=== PATIENT | female | born 1945 | race Caucasian/White ===

== ENCOUNTER → 2020-07-02 | Outpatient (CLI) | payer MEDICARE ==
[2020-07-02 11:24] VITALS: BP 176/72; PULSE 80; RESP 18; TEMP 98.1
--- NOTE | 2020-07-02 12:09 | P.GSHP ---
History of Present Illness H&P Date: 07/02/20 Chief Complaint: breast pain Sarbjit is a 75 year old white female seen in consultation for Sandie Yeboah with a complaint of pain in her breast. She had a bilateral mammogram on 04-23-20 which was benign BIRAD 1. She states the pain initially started in the left breast in the upper outer area, this stopped and she started having pain in the right breast. At this time the pain has resolved. The pain was described as aching. It would last for about an hour. The pain would occur 3-4 times/day. The pain started after she started ditropan for bladder frequency. This caused dry mouth, and nose and eyes, as well as dry skin. She stopped this on her own and the pain stopped. She was taking ibuprofen 800 mg which was helping the pain but is no longer needed. Also of note at the time the patient was having the breast pain she had switched to caffeinated coffee was drinking approximately 5 cups per day and eating chocolate on a regular basis. She has since stopped both of these things. The patient has had one breast biopsy after breast-feeding she developed a dry mouth and had a removal of a duct. She does not remember which breast this was in. She is not complaining of any nipple discharge or skin changes. She is not complaining of any lumps masses or nodules in her breast at this time. The pain has subsided since she stopped the Ditropan. She is not complaining of any trauma or infection in the breast. Caffeine: 5 cups/day, changed to decaff about 6 weeks ago nicotine: none Theophylline: daily, stopped about 6 weeks ago hormones: none Family History: mother: skin cancer Hormonal History: menarche: 11 , breast fed: yes menopause: 49 BCP: 16 years hormones: none Surgical history: appy gallbladder ankle left right hand Medical History: none Social History: nicotine: none alcohol: none drugs: none - Constitutional Constitutional: Denies chills, Denies fever - EENT Comment: laser eye right, bilateral cataract Eyes: denies blurred vision, denies pain Ears: deny: decreased hearing, tinnitus Ears, nose, mouth and throat: Denies headache, Denies sore throat - Breasts Breasts: bilateral: as per HPI - Cardiovascular Cardiovascular: Denies chest pain, Denies shortness of breath - Respiratory Respiratory: Denies cough, Denies 7 - Gastrointestinal Comment: PUD in the past Gastrointestinal: Denies abdominal pain, Denies diarrhea, Denies nausea, Denies vomiting - Genitourinary (Female) Genitourinary: Reports urinary frequency, Denies dysuria, Denies hematuria - Menstruation Menstruation: Reports postmenopausal - Musculoskeletal Comment: arthritis Musculoskeletal: Denies myalgias - Integumentary Integumentary: Denies pruritus, Denies rash - Neurological Neurological: Reports weakness, Denies numbness - Psychiatric Psychiatric: Denies anxiety, Denies depression - Endocrine Comment: changed diet so some weight loss/ 15 pounds Endocrine: Reports weight change, Denies fatigue - Hematologic/Lymphatic Hematologic/Lymphatic: Reports as per HPI - Allergic/Immunologic Allergic/Immunologic: Reports as per HPI Past Medical History History of Any Multi-Drug Resistant Organisms: None Reported Smoking Status: Never smoker Medications and Allergies Home Medications Medication Instructions Recorded Confirmed Type Cholecalciferol (Vitamin D3) 12.5 mcg PO QAM 07/02/20 07/02/20 History [Vitamin D3] Magnesium 250 mg PO QAM 07/02/20 07/02/20 History Naproxen Sodium [Aleve] 220 mg PO DAILY 07/02/20 07/02/20 History Neuriva 1 tab PO HS 07/02/20 07/02/20 History [place]-3 Fatty Acids/Fish Oil [Fish 1 each PO QAM 07/02/20 07/02/20 History Oil 1,000 mg Softgel] Pomegranate Juice 1 oz PO QAM 07/02/20 07/02/20 History Super B Complex 1 tab PO QAM 07/02/20 07/02/20 History Allergies Allergy/AdvReac Type Severity Reaction Status Date / Time No Known Allergies Allergy Unverified 07/02/20 11:16 Surgical - Exam Vital Signs Temp Pulse Resp BP Pulse Ox 98.1 F 80 18 176/72 97 07/02/20 11:20 07/02/20 11:20 07/02/20 11:20 07/02/20 11:20 07/02/20 11:20 BMI 22.7 - General well developed, well nourished, no distress - Eyes normal ocular movement - ENT normal nares, no hearing loss - Neck no masses, trachea midline - Respiratory normal expansion, normal respiratory effort, clear to percussion, clear to auscultation - Cardiovascular Rhythm: regular Heart Sounds: normal: S1, S2 - Abdomen Abdomen: soft, bowel sounds - Musculoskeletal normal gait, normal posture - Psychiatric oriented to time, oriented to person, oriented to place, speech is normal, memory intact Breast exam: BRA: 36C inspection: Bilateral grade 3 ptosis palpation: Right breast: multi-positional exam fibrocystic changes, no dominant masses or nodules of concern mild tender upper quadrant Right axilla: No adenopathy of concern Left breast: Multi-positional exam fibrocystic changes, no dominant masses or nodules of concern, mild tender upper outer quadrant Left axilla: No adenopathy of concern Results Mammogram results reviewed Assessment and Plan Assessment: Impression: 1. Intermittent bilateral breast discomfort/more pronounced after patient started drinking caffeinated coffee and eating chocolate this also seems to correspond to taking Ditropan the pain is now improved 2. Fibrocystic breast changes recent bilateral mammogram 04-23-20 BIRADS 1 Plan: 1. obstain from theophylline and caffeine 2. Bilateral mammogram in 1 year 3. Patient will call if any questions or concerns 4. Follow-up with Sandie Yeboah We have discussed the causes of fibrocystic breast pain. She is going to modify her lifestyle to abstain from theophylline and caffeine. She was given a book related to breast pain. She will see us again if she has any questions or concerns. DD: Sandie Yeboah encounter 40 minutes, > 50% of time in planning and counselling
== END | disposition home or self-care (01) ==
LOC: WWCWWP 10:47
PROVIDERS: ATTEND Surgery
DX: Z53.9 Procedure and treatment not carried out, unspecified reason (principal)

== ENCOUNTER 2024-10-10 14:20 | Observation (INO) | payer MEDICARE ==
--- NOTE | 2024-10-10 15:17 | ED ---
General Adult HPI - General Chief complaint: Chest Pain Stated complaint: chest pain Time Seen by Provider: 10/10/24 14:33 Source: patient, family, RN notes reviewed Mode of arrival: ambulatory Limitations: no limitations - History of Present Illness Initial comments: This is an 79-year-old female with a history of coronary artery disease with stent placement presenting to the emergency department as a transfer from [facility] with concern for chest pain. Patient had outpatient cardiac rehab scheduled this morning where she presented however staff was concerned that patient was ill-appearing. Additionally, she states over the past week she has been experiencing relatively constant chest pressure that is mid chest and nonradiating. States the pain is relatively constant however will occasionally intensify and is sometimes associated with diaphoresis. Currently she is experiencing mild chest pressure with no associated nausea, vomiting. She is presenting for continuation of care cardiology. While at [facility] patient underwent extensive evaluation including CT of the abdomen pelvis without contrast, chest x-ray, laboratory testing including troponin that was unremarkable. - Related Data Home Medications Medication Instructions Recorded Confirmed Ascorbic Acid [Vitamin C] 500 mg PO DAILY 10/10/24 10/10/24 Brain Health Supplement 1 tab PO HS 10/10/24 10/10/24 Calcium Carbonate [Calcium] 600 mg PO DAILY 10/10/24 10/10/24 Cholecalciferol [Vitamin D3 (10 10 mcg PO DAILY 10/10/24 10/10/24 Mcg = 400 Iu)] Empagliflozin [Jardiance] 10 mg PO DAILY 10/10/24 10/10/24 Magnesium Oxide [Mag-Ox] 400 mg PO DAILY 10/10/24 10/10/24 Multivit-Min/Iron/Folic/Lutein 1 tab PO DAILY 10/10/24 10/10/24 [Centrum Silver Women Tablet] Psyllium Husk [Metamucil] 0.4 gm PO DAILY 10/10/24 10/10/24 Rosuvastatin [Crestor] 20 mg PO HS 10/10/24 10/10/24 Sacubitril/Valsartan [Entresto 49 1 tab PO BID 10/10/24 10/10/24 mg-51 mg Tablet] Previous Rx's Medication Instructions Recorded Aspirin 81 mg PO DAILY tab 09/04/24 Ezetimibe [Zetia] 10 mg PO DAILY #90 tab 09/04/24 Metoprolol Succinate (ER) [Toprol 12.5 mg PO DAILY #45 tab 09/04/24 XL] Nitroglycerin Sl Tabs [Nitrostat] 0.4 mg SUBLINGUAL Q5M PRN #25 tab 09/04/24 Ticagrelor [Brilinta] 90 mg PO BID #180 tab 09/04/24 Allergies Allergy/AdvReac Type Severity Reaction Status Date / Time atorvastatin [From Lipitor] Allergy Severe Cough Verified 10/10/24 16:28 Review of Systems ROS Statement: Those systems with pertinent positive or pertinent negative responses have been documented in the HPI. ROS Other: All systems not noted in ROS Statement are negative. Past Medical History Past Medical History: Hypertension History of Any Multi-Drug Resistant Organisms: None Reported Past Surgical History: Orthopedic Surgery Past Anesthesia/Blood Transfusion Reactions: No Reported Reaction Date of Last Stent Placement:: 09/02/2024 Past Psychological History: No Psychological Hx Reported Smoking Status: Never smoker Past Alcohol Use History: None Reported Past Drug Use History: None Reported General Exam Limitations: no limitations Neck exam: Present: normal inspection. Absent: tenderness, meningismus, lymphadenopathy Respiratory exam: Present: normal lung sounds bilaterally. Absent: respiratory distress, wheezes, rales, rhonchi, stridor Cardiovascular Exam: Present: regular rate, normal rhythm, normal heart sounds. Absent: systolic murmur, diastolic murmur, rubs, gallop, clicks GI/Abdominal exam: Present: soft, normal bowel sounds. Absent: distended, tenderness, guarding, rebound, rigid Extremities exam: Present: normal inspection, full ROM, normal capillary refill. Absent: tenderness, pedal edema, joint swelling, calf tenderness Back exam: Present: normal inspection Course Vital Signs 10/10/24 10/10/24 10/10/24 14:23 15:47 17:50 Temperature 98.0 F Pulse Rate 71 66 75 Respiratory 18 18 18 Rate Blood Pressure 125/71 123/76 137/70 O2 Sat by Pulse 96 97 98 Oximetry Medical Decision Making - Medical Decision Making Was pt. sent in by a medical professional or institution (, PA, L[employer]ER [employer]ER, urgent care, hospital, or fdc...) When possible be specific @ -Patient was a transfer from [facility] for further treatment chest pressure Did you speak to anyone other than the patient for history (EMS, parent, family, police, friend...)? What history was obtained from this source @ -No Did you review nursing and triage notes (agree or disagree)? Why? @ -I reviewed and agree with nursing and triage notes Were old charts reviewed (outside hosp., previous admission, EMS record, old EKG, old radiological studies, urgent care reports/EKG's, fdc records)? Report findings @ -Reviewed emergency department visit note from 09/02/2024 where patient was a transfer from [facility] she presented with concerns of chest pain and was found to have a new left-sided bundle branch block with patient was given tenecteplase and transferred to [facility] for cardiology input. During patient's duration of stay she underwent cardiac catheterization completed by Dr. Jean Baptiste due to acute anterior ST elevation myocardial infarction with a stent placement in the LAD and concerning intermediate to severe lesion involving the mid RCA, echo showed EF of 25 to 30% CT of the abdomen pelvis with IV contrast completed on 10/10/2024 1130 at [facility] with mild prominence of the colon possibly due to infectious/inflammatory enteritis or colitis X-ray of the chest completed no acute cardiopulmonary process with small surgical clips for post-cholecystectomy Differential Diagnosis (chest pain, altered mental status, abdominal pain women, abdominal pain men, vaginal bleeding, weakness, fever, dyspnea, syncope, headache, dizziness, GI bleed, back pain, seizure, CVA, palpatations, mental health, musculoskeletal)? @ -Differential Chest Pain: Stable Angina, Unstable Angina, STEMI, NSTEMI Aortic Dissection, Pneumothorax, Musculoskeletal, Esophageal Spasm GERD, Cholecystitis, Pancreatitis, Zoster, this is not meant to be an all-inclusive list. EKG interpreted by me (3pts min.). @ -Completed at 1439 sinus rhythm and sinus arrhythmia with a ventricular rate of 60, NV interval 171, QRS 135, QTc 428. X-rays interpreted by me (1pt min.). @ -None done CT interpreted by me (1pt min.). @ -None done U/S interpreted by me (1pt. min.). @ -None done What testing was considered but not performed or refused? (CT, X-rays, U/S, labs)? Why? @ -None What meds were considered but not given or refused? Why? @ -None Did you discuss the management of the patient with other professionals (professionals i.e. , PA, [employer]ER, lab, RT, psych nurse, social services coordinator, polisher sand, teacher, transportation officer, medical case worker)? Give summary @ -Spoke with on-call [facility] physician, Dr. Elias,. Patient's presentation is excepted mission with GI and cardiology on consult. Was smoking cessation discussed for >3mins.? @ -No Was critical care preformed (if so, how long)? @ -No Were there social determinants of health that impacted care today? How? (Homelessness, low income, unemployed, alcoholism, drug addiction, transportation, low edu. Level, literacy, decrease access to med. care, assisted, rehab)? @ -No Was there de-escalation of care discussed even if they declined (Discuss DNR or withdrawal of care, Hospice)? DNR status @ -No What co-morbidities impacted this encounter? (DM, HTN, Smoking, COPD, CAD, Cancer, CVA, ARF, Chemo, Hep., AIDS, mental health diagnosis, sleep apnea, morbid obesity)? @ -None Was patient admitted / discharged? Hospital course, mention meds given and route, prescriptions, significant lab abnormalities, going to OR and other pert inent info. @ -Admitted. 79-year-old female presenting to emergency department as a trans du from [facility] for chest pressure. Patient is arrival her vitals are stable and he is in no signs of acute distress. Her laboratory testing is remarkable for transaminitis with an AST of 280, ALT 255, alkaline phosphatase 21. BNP of 602 troponin nonelevated. Patient will be admitted to internal medicine with cardiology and GI on consult for further evaluation of transaminitis in addition to this pressure and ACS rule out. Case discussed with Dr. Quezada Undiagnosed new problem with uncertain prognosis? @ -No Drug Therapy requiring intensive monitoring for toxicity (Heparin, Nitro, Insulin, Cardizem)? @ -No Were any procedures done? @ -No Diagnosis/symptom? @ -Chest pressure/chest pain, transaminitis Acute, or Chronic, or Acute on Chronic? @ -acute Uncomplicated (without systemic symptoms) or Complicated (systemic symptoms)? @ -complicated Side effects of treatment? @ -Complicated Exacerbation, Progression, or Severe Exacerbation? @ -No Poses a threat to life or bodily function? How? (Chest pain, [place], NH, pneumonia, PE, COPD, DKA, ARF, appy, cholecystitis, CVA, Diverticulitis, Homicidal, Suicidal, threat to staff... and all critical care pts) @ -No - Lab Data Result diagrams: 10/10/24 15:44 10/10/24 15:44 Lab Results 10/10/24 10/10/24 10/10/24 Range/Units 15:44 15:44 15:44 WBC 3.7 L (3.8-10.6) k/uL RBC 3.87 (3.80-5.40) m/uL Hgb 12.3 (11.4-16.0) gm/dL Hct 36.6 (34.0-46.0) % MCV 94.6 (80.0-100.0) fL MCH 31.8 (25.0-35.0) pg MCHC 33.6 (31.0-37.0) g/dL RDW 12.8 (11.5-15.5) % Plt Count 204 (150-450) k/uL MPV 7.3 Neutrophils % 69 % Lymphocytes % 16 % Monocytes % 5 % Eosinophils % 6 % Basophils % 1 % Neutrophils # 2.6 (1.3-7.7) k/uL Lymphocytes # 0.6 L (1.0-4.8) k/uL Monocytes # 0.2 (0-1.0) k/uL Eosinophils # 0.2 (0-0.7) k/uL Basophils # 0.0 (0-0.2) k/uL PT 10.4 (10.0-12.5) sec INR 0.9 (<1.2) APTT 23.8 (22.0-30.0) sec Sodium 139 (137-145) mmol/L Potassium 4.2 (3.5-5.1) mmol/L Chloride 104 (98-107) mmol/L Carbon Dioxide 27 (22-30) mmol/L Anion Gap 8 mmol/L BUN 14 (7-17) mg/dL Creatinine 0.71 (0.52-1.04) mg/dL Est GFR (CKD-EPI)AfAm >90 (>60 ml/min/1.73 sqM) Est GFR (CKD-EPI)NonAf 81 (>60 ml/min/1.73 sqM) Glucose 87 (74-99) mg/dL Calcium 9.2 (8.4-10.2) mg/dL Magnesium 2.4 H (1.6-2.3) mg/dL Total Bilirubin 0.6 (0.2-1.3) mg/dL AST 280 H (14-36) U/L ALT 255 H (4-34) U/L Alkaline Phosphatase 221 H (38-126) U/L Troponin I (0.000-0.034) ng/mL NT-Pro-B Natriuret Pep pg/mL Total Protein 6.2 L (6.3-8.2) g/dL Albumin 3.9 (3.5-5.0) g/dL Lipase 252 (23-300) U/L Influenza Type A (PCR) (Not Detectd) Influenza Type B (PCR) (Not Detectd) RSV (PCR) (Not Detectd) SARS-CoV-2 (PCR) (Not Detectd) 10/10/24 10/10/24 10/10/24 Range/Units 15:44 15:44 15:44 WBC (3.8-10.6) k/uL RBC (3.80-5.40) m/uL Hgb (11.4-16.0) gm/dL Hct (34.0-46.0) % MCV (80.0-100.0) fL MCH (25.0-35.0) pg MCHC (31.0-37.0) g/dL RDW (11.5-15.5) % Plt Count (150-450) k/uL MPV Neutrophils % % Lymphocytes % % Monocytes % % Eosinophils % % Basophils % % Neutrophils # (1.3-7.7) k/uL Lymphocytes # (1.0-4.8) k/uL Monocytes # (0-1.0) k/uL Eosinophils # (0-0.7) k/uL Basophils # (0-0.2) k/uL PT (10.0-12.5) sec INR (<1.2) APTT (22.0-30.0) sec Sodium (137-145) mmol/L Potassium (3.5-5.1) mmol/L Chloride (98-107) mmol/L Carbon Dioxide (22-30) mmol/L Anion Gap mmol/L BUN (7-17) mg/dL Creatinine (0.52-1.04) mg/dL Est GFR (CKD-EPI)AfAm (>60 ml/min/1.73 sqM) Est GFR (CKD-EPI)NonAf (>60 ml/min/1.73 sqM) Glucose (74-99) mg/dL Calcium (8.4-10.2) mg/dL Magnesium (1.6-2.3) mg/dL Total Bilirubin (0.2-1.3) mg/dL AST (14-36) U/L ALT (4-34) U/L Alkaline Phosphatase (38-126) U/L Troponin I <0.012 (0.000-0.034) ng/mL NT-Pro-B Natriuret Pep 602 pg/mL Total Protein (6.3-8.2) g/dL Albumin (3.5-5.0) g/dL Lipase (23-300) U/L Influenza Type A (PCR) Not Detected (Not Detectd) Influenza Type B (PCR) Not Detected (Not Detectd) RSV (PCR) Not Detected (Not Detectd) SARS-CoV-2 (PCR) Not Detected (Not Detectd) Disposition Clinical Impression: Chest pain, Transaminitis Disposition: ADMITTED IP TO THIS [facility] Condition: Stable Referrals: None,Stated [Primary Care Provider] - 1-2 days Decision to Admit Reason: Admit from EC Decision Date: 10/10/24 Decision Time: 18:06
[2024-10-10 15:56] LABS: Basophils % (A) 1 %; Eosinophils # (A) 0.2 k/uL (0-0.7); Eosinophils % (A) 6 %; HCT 36.6 % (34.0-46.0); HGB 12.3 gm/dL (11.4-16.0); Lymphocytes # (A) 0.6 k/uL (1.0-4.8); Lymphocytes % (A) 16 %; MCH 31.8 pg (25.0-35.0); MCHC 33.6 g/dL (31.0-37.0); MCV 94.6 fL (80.0-100.0); Mean Platelet Volume 7.3; Monocytes # (A) 0.2 k/uL (0-1.0); Monocytes % (A) 5 %; Neutrophils # (A) 2.6 k/uL (1.3-7.7); Neutrophils % (A) 69 %; Platelet Count 204 k/uL (150-450); RBC 3.87 m/uL (3.80-5.40); RDW 12.8 % (11.5-15.5); WBC 3.7 k/uL (3.8-10.6)
[2024-10-10 16:11] LABS: INR 0.9 (<1.2); Partial Thromboplastin Time 23.8 sec (22.0-30.0); Prothrombin Time 10.4 sec (10.0-12.5)
[2024-10-10 16:18] LABS: ALT 255 U/L (4-34); AST 280 U/L (14-36); African American GFR (CKD) >90 (>60 ml/min/1.73 sqM); Albumin 3.9 g/dL (3.5-5.0); Alkaline Phosphatase 221 U/L (38-126); Anion Gap 8 mmol/L; Blood Urea Nitrogen 14 mg/dL (7-17); Calcium 9.2 mg/dL (8.4-10.2); Carbon Dioxide 27 mmol/L (22-30); Chloride 104 mmol/L (98-107); Glucose 87 mg/dL (74-99); Lipase 252 U/L (23-300); Magnesium 2.4 mg/dL (1.6-2.3); Non-African American GFR(CKD) 81 (>60 ml/min/1.73 sqM); Potassium 4.2 mmol/L (3.5-5.1); Sodium 139 mmol/L (137-145); Total Bilirubin 0.6 mg/dL (0.2-1.3); Total Protein 6.2 g/dL (6.3-8.2)
[2024-10-10 16:31] LABS: Influenza A Not Detected (Not Detectd); Influenza B Not Detected (Not Detectd); RSV Not Detected (Not Detectd)
[2024-10-10] MEDS ORDERED: IBUPROFEN 400 MG TAB PO PRN (18:06)
[2024-10-10] MEDS ORDERED: NALOXONE 0.4 MG/ML 1 ML VIAL IV PRN (18:06)
[2024-10-10] MEDS ORDERED: NITROGLYCERIN SL TABS 0.4 MG TAB SUBLINGUAL PRN (18:08)
--- NOTE | 2024-10-10 20:13 | XR ---
EXAMINATION TYPE: XR chest 1V portable DATE OF EXAM: 10/10/2024 8:09 PM COMPARISON: None. CLINICAL INDICATION: Female, 79 years old with history of chest pain, TECHNIQUE: XR chest 1V portable views of the chest are obtained. FINDINGS: Demonstrated are scattered senescent parenchymal change. There is no evidence for focal infiltrate. The heart is stable. Hilar and mediastinal structures are within normal limits. Degenerative changes are seen of the dorsal spine. IMPRESSION: 1. Chronic changes without evidence for acute pulmonary disease. [facility], , 10/10/2024 8:10 PM
[2024-10-10] MEDS: SACUBITRIL/VALSARTAN 49 MG-51 MG TABLET PO SCH (22:05)
[2024-10-10] MEDS: TICAGRELOR 90 MG TAB PO SCH (22:05)
--- NOTE | 2024-10-11 00:56 | P.HPIM ---
History of Present Illness H&P Date: 10/10/24 Patient is a 79-year-old female with hypertension, heart failure reduced ejection fraction with an EF of 20-25%, CAD status post stent placement presenting with chest pain. Patient is a transfer from [facility]. She was at her scheduled cardiac rehab this morning where she presented with a pressure-like, non-radiating chest pain. Staff was concerned that she was ill-appearing. She states the chest pain has been occurring for the past week. Sometimes the pain can get intense enough to the point where she starts sweating. States that the pain is made worse on exertion. However since admission she denies any current chest pain. She also states she went to walk to the bathroom and did not experience any type of chest pain. Patient denies any smoking, alcohol, illicit drug history. Patient denies any fever, chills, headache, vision changes, shortness of breath, abdominal pain, nausea, vomiting, diarrhea, urinary symptoms. EKG independently interpreted displays this rhythm with sinus arrhythmia with left bundle branch similar to the prior EKG, rate 60 bpm, QTc 428 ms CXR independently interpreted displays no acute cardiopulmonary process T98 F, PA 71, RR 18, BP 125/71, O2 saturation 96% on room air Review of systems: Pertinent positives and negatives as discussed in HPI, a complete review of systems was performed and all other systems are negative. Physical examination: Vital signs reviewed General: non toxic, no distress, appears at stated age, normal weight Derm: no unusual rashes/lesions, warm Head: atraumatic, normocephalic, symmetric Eyes: anicteric sclera, pupils equal round reactive to light ENT: Nose and ears atraumatic Mouth: no lip lesion, mucus membranes moist Cardiovascular: S1S2 reg, no murmur, positive dorsalis pedis pulse bilateral, no edema Lungs: CTA bilateral, no rhonchi, no rales, no accessory muscle use Abdominal: soft, mildly tender to palpation in LLQ, no guarding Ext: muscle strength 5 out of 5 in all 4 extremities grossly, no gross muscle atrophy Neuro: CN II-XI grossly intact, no gross focal neuro deficits Psych: Alert, oriented to person, place, and time Assessment/Plan: Patient is a 79-year-old female with hypertensive presenting with chest pain. ED documentation reviewed. Discussed with the patient is admitted with an anticipated last than 2 midnight stay for evaluation of [] #. Acute chest pain #. CAD s/p stent Troponin <0.012 x 2, continue to trend EKG independently interpreted displays this rhythm with sinus arrhythmia with left bundle branch similar to the prior EKG, rate 60 bpm, QTc 428 ms CXR independently interpreted displays no acute cardiopulmonary process Continue aspirin 81 mg p.o. daily Continue with Brilinta 90 mg p.o. twice daily Nitrostat 0.4 mg sublingual Q5M as needed Patient has intolerance to atorvastatin, receives PCSK9 inhibitors outpatient continue with Zetia 10 mg p.o. daily TSH ordered Lipid panel (09/03/2024) showed LDL 117.7, HDL 67, triglycerides 70, total cholesterol 199 A1c (09/02/2024) 5.5% Cardiac telemetry Cardiology consult Left heart cath done in August 2024 showed 99% mid LAD stenosis for which PCI was done, Plans were for staged PCI of RCA which showed 80% mid RCA stenosis #. Transaminitis Hepatitis panel ordered TANIA ordered, Creatine kinase, Iron studies, GGT ordered Gallbladder ultrasound ordered GI consulted, will likely follow-up outpatient hold statin #. Heart failure with reduced ejection fraction (EF 20-20%), not in exacerbation proBNP 602 CXR independently interpreted displays no acute cardiopulmonary process Continue GDMT of Toprol-XL 12.5 p.o. daily, Farxiga 5 mg p.o. daily, Entresto 49 Mg51 mg p.o. twice daily DVT prophylaxis: Lovenox [address] S[address]: Pending clinical course Ginger García MD PGY-1 IM Dictation was produced using [employer] dictation software. please excuse any grammatical, word or spelling errors. I have seen and evaluated the patient today. I Discussed the case with the resident and agree with the resident's findings I edited the assessment and plan as necessary as documented in the resident's note. Past Medical History Past Medical History: Hypertension History of Any Multi-Drug Resistant Organisms: None Reported Past Surgical History: Orthopedic Surgery Past Anesthesia/Blood Transfusion Reactions: No Reported Reaction Date of Last Stent Placement:: 09/02/2024 Past Psychological History: No Psychological Hx Reported Smoking Status: Never smoker Past Alcohol Use History: None Reported Past Drug Use History: None Reported Medications and Allergies Home Medications Medication Instructions Recorded Confirmed Type Aspirin 81 mg PO DAILY tab 09/04/24 10/10/24 Rx Ezetimibe [Zetia] 10 mg PO DAILY #90 tab 09/04/24 10/10/24 Rx Metoprolol Succinate (ER) [Toprol 12.5 mg PO DAILY #45 tab 09/04/24 10/10/24 Rx XL] Nitroglycerin Sl Tabs [Nitrostat] 0.4 mg SUBLINGUAL Q5M PRN #25 tab 09/04/24 10/10/24 Rx Ticagrelor [Brilinta] 90 mg PO BID #180 tab 09/04/24 10/10/24 Rx Ascorbic Acid [Vitamin C] 500 mg PO DAILY 10/10/24 10/10/24 History Brain Health Supplement 1 tab PO HS 10/10/24 10/10/24 History Calcium Carbonate [Calcium] 600 mg PO DAILY 10/10/24 10/10/24 History Cholecalciferol [Vitamin D3 (10 10 mcg PO DAILY 10/10/24 10/10/24 History Mcg = 400 Iu)] Empagliflozin [Jardiance] 10 mg PO DAILY 10/10/24 10/10/24 History Magnesium Oxide [Mag-Ox] 400 mg PO DAILY 10/10/24 10/10/24 History Multivit-Min/Iron/Folic/Lutein 1 tab PO DAILY 10/10/24 10/10/24 History [Centrum Silver Women Tablet] Psyllium Husk [Metamucil] 0.4 gm PO DAILY 10/10/24 10/10/24 History Rosuvastatin [Crestor] 20 mg PO HS 10/10/24 10/10/24 History Sacubitril/Valsartan [Entresto 49 1 tab PO BID 10/10/24 10/10/24 History mg-51 mg Tablet] Allergies Allergy/AdvReac Type Severity Reaction Status Date / Time atorvastatin [From Lipitor] Allergy Severe Cough Verified 10/10/24 16:28 Physical Exam Vitals: Vital Signs Temp Pulse Resp BP Pulse Ox 10/10/24 17:50 75 18 137/70 98 10/10/24 15:47 66 18 123/76 97 10/10/24 14:23 98.0 F 71 18 125/71 96 Intake and Output 10/10/24 10/10/24 10/10/24 06:59 14:59 22:59 Other: Weight 46.04 kg Results CBC & Chem 7: 10/10/24 15:44 10/10/24 15:44 Labs: Abnormal Lab Results - Last 24 Hours (Table) 10/10/24 10/10/24 Range/Units 15:44 15:44 WBC 3.7 L (3.8-10.6) k/uL Lymphocytes # 0.6 L (1.0-4.8) k/uL Magnesium 2.4 H (1.6-2.3) mg/dL AST 280 H (14-36) U/L ALT 255 H (4-34) U/L Alkaline Phosphatase 221 H (38-126) U/L Total Protein 6.2 L (6.3-8.2) g/dL
[2024-10-11 03:13] LABS: GGT 94 U/L (0-38)
[2024-10-11 03:17] LABS: Hepatitis A Antibody IgM Nonreactive (Nonreactive); Hepatitis B Core IgM Nonreactive (Nonreactive); Hepatitis B Surface Antigen Nonreactive (Nonreactive); Hepatitis C IgG Antibody Nonreactive (Nonreactive)
[2024-10-11 07:02] LABS: Basophils % (A) 1 %; Eosinophils # (A) 0.5 k/uL (0-0.7); Eosinophils % (A) 10 %; HCT 36.7 % (34.0-46.0); Lymphocytes # (A) 0.8 k/uL (1.0-4.8); Lymphocytes % (A) 17 %; MCH 31.6 pg (25.0-35.0); MCHC 32.8 g/dL (31.0-37.0); MCV 96.4 fL (80.0-100.0); Mean Platelet Volume 7.2; Monocytes # (A) 0.3 k/uL (0-1.0); Monocytes % (A) 6 %; Neutrophils % (A) 64 %; Platelet Count 202 k/uL (150-450); RBC 3.81 m/uL (3.80-5.40); RDW 12.9 % (11.5-15.5); WBC 4.6 k/uL (3.8-10.6)
[2024-10-11 07:25] LABS: Anion Gap 8 mmol/L; Blood Urea Nitrogen 14 mg/dL (7-17); Carbon Dioxide 26 mmol/L (22-30); Chloride 106 mmol/L (98-107); Glucose 81 mg/dL (74-99); Potassium 3.9 mmol/L (3.5-5.1); Sodium 140 mmol/L (137-145)
[2024-10-11 07:26] LABS: ALT 211 U/L (4-34); AST 196 U/L (14-36); African American GFR (CKD) 86 (>60 ml/min/1.73 sqM); Albumin 3.7 g/dL (3.5-5.0); Albumin/Globulin Ratio 1.8; Alkaline Phosphatase 267 U/L (38-126); Calcium 8.8 mg/dL (8.4-10.2); Globulin 2.1 g/dL; Magnesium 2.3 mg/dL (1.6-2.3); Non-African American GFR(CKD) 75 (>60 ml/min/1.73 sqM); Total Bilirubin 0.7 mg/dL (0.2-1.3); Total Protein 5.8 g/dL (6.3-8.2)
[2024-10-11] MEDS: DAPAGLIFLOZIN PROPANEDIOL 5 MG TABLET PO SCH (09:29)
[2024-10-11] MEDS: ASPIRIN 81 MG PO SCH (09:30)
[2024-10-11] MEDS: EZETIMIBE 10 MG TAB PO SCH (09:30)
[2024-10-11] MEDS: MULTIVITAMINS, THERA 1 EACH TAB PO SCH (09:30)
[2024-10-11] MEDS: ENOXAPARIN 40 MG/0.4 ML SYRINGE SQ SCH (09:30)
[2024-10-11] MEDS: ASCORBIC ACID 500 MG TAB PO SCH (09:30)
[2024-10-11] MEDS: MAGNESIUM OXIDE 400 MG TAB PO SCH (09:30)
[2024-10-11] MEDS: CALCIUM CARBONATE 500 MG CHEWABLE PO SCH (09:30)
[2024-10-11] MEDS: METOPROLOL SUCCINATE (ER) 25 MG TAB.ER.24H PO SCH (09:30)
[2024-10-11] MEDS: CHOLECALCIFEROL 10 MCG (400 IU) TABLET PO SCH (09:32)
[2024-10-11] MEDS: PSYLLIUM HUSK 100% 6 GM PACKET PO SCH (09:32)
--- NOTE | 2024-10-11 10:40 | P.CONS ---
History of Present Illness - Reason for Consult Consult date: 10/11/24 Transaminitis Requesting physician: Zoila Toledo - Chief Complaint Chest pressure - History of Present Illness This is a pleasant 79-year-old female who was transferred from [facility] for cardiology consultation secondary to chest pressure after recently having myocardial infarction undergoing cardiac catheterization and PCI of the LAD. Apparently patient was at cardiac rehab and staff were concerned that she did not look well and patient had stated that she had chest pressure and just overall did not feel well. She was directed to go to the emergency department and was seen at [facility]. There she was noted to have elevated LFTs And complaints of chest pressure. Patient denies any previous history of liver disease. She had a CT of the abdomen pelvis that reported some mild fluid prominence in the colon could indicate prominent secretions due to infectious/inflammatory enteritis or colitis. However patient denies any abdominal pain, no nausea or vomiting. She does have a past history of cholecystectomy many years ago she believes secondary to gallstones. Patient has been started on multiple new medications within the last 5 weeks following her stent including aspirin, Brilinta, Crestor, Zetia, Entresto, metoprolol and Jardiance. Patient states in the past she was allergic or did not tolerate a atorvastatin. Liver enzymes from 10/10/2024 total bilirubin 0.5 ALT 247 AST 330. Her rosuvastatin was discontinued. LFTs are trending down. Today total bilirubin 0.7 AST 196 ALT 211 alkaline phosphatase 267. Acute hepatitis panel nonreactive. Influenza RSV and SARS serology not detected. Review of Systems REVIEW OF SYSTEMS: CARDIOPULMONARY: No chest pain or shortness of breath. Patient reports more chest pressure. Gastrointestinal: No abdominal pain. No nausea or vomiting. No hematemesis, coffee-ground emesis. No rectal bleeding, or melena. GENITOURINARY: No dysuria or hematuria. MUSCULOSKELETAL: Reports normal range of motion., Joint pain. SKIN: No rashes. No jaundice. ENDOCRINE: No chills, fevers. No excessive weight gain or loss. No polydipsia or polyuria. PSYCHIATRIC: Unremarkable. NEUROLOGY: No change in mental status. Denies dizziness, headache. ENT: Vision unremarkable. CONSTITUTIONAL: No recent weight loss. No fever, chills, night sweats. Past Medical History Past Medical History: Hypertension Additional Past Medical History / Comment(s): 1 stent in 08/2024 History of Any Multi-Drug Resistant Organisms: None Reported Past Surgical History: Orthopedic Surgery Past Anesthesia/Blood Transfusion Reactions: No Reported Reaction Date of Last Stent Placement:: 09/02/2024 Past Psychological History: No Psychological Hx Reported Smoking Status: Never smoker Past Alcohol Use History: None Reported Past Drug Use History: None Reported Medications and Allergies Home Medications Medication Instructions Recorded Confirmed Type Aspirin 81 mg PO DAILY tab 09/04/24 10/10/24 Rx Ezetimibe [Zetia] 10 mg PO DAILY #90 tab 09/04/24 10/10/24 Rx Metoprolol Succinate (ER) [Toprol 12.5 mg PO DAILY #45 tab 09/04/24 10/10/24 Rx XL] Nitroglycerin Sl Tabs [Nitrostat] 0.4 mg SUBLINGUAL Q5M PRN #25 tab 09/04/24 10/10/24 Rx Ticagrelor [Brilinta] 90 mg PO BID #180 tab 09/04/24 10/10/24 Rx Ascorbic Acid [Vitamin C] 500 mg PO DAILY 10/10/24 10/10/24 History Brain Health Supplement 1 tab PO HS 10/10/24 10/10/24 History Calcium Carbonate [Calcium] 600 mg PO DAILY 10/10/24 10/10/24 History Cholecalciferol [Vitamin D3 (10 10 mcg PO DAILY 10/10/24 10/10/24 History Mcg = 400 Iu)] Empagliflozin [Jardiance] 10 mg PO DAILY 10/10/24 10/10/24 History Magnesium Oxide [Mag-Ox] 400 mg PO DAILY 10/10/24 10/10/24 History Multivit-Min/Iron/Folic/Lutein 1 tab PO DAILY 10/10/24 10/10/24 History [Centrum Silver Women Tablet] Psyllium Husk [Metamucil] 0.4 gm PO DAILY 10/10/24 10/10/24 History Rosuvastatin [Crestor] 20 mg PO HS 10/10/24 10/10/24 History Sacubitril/Valsartan [Entresto 49 1 tab PO BID 10/10/24 10/10/24 History mg-51 mg Tablet] Allergies Allergy/AdvReac Type Severity Reaction Status Date / Time atorvastatin [From Lipitor] Allergy Severe Cough Verified 10/10/24 16:28 Physical Exam Vitals: Vital Signs Temp Pulse Pulse Resp BP BP Pulse Ox 10/11/24 02:00 97.9 F 64 16 111/68 98 10/11/24 01:28 18 10/10/24 20:45 97.5 F L 59 L 18 127/72 97 10/10/24 17:50 75 18 137/70 98 10/10/24 15:47 66 18 123/76 97 10/10/24 14:23 98.0 F 71 18 125/71 96 Intake and Output 10/10/24 10/10/24 10/11/24 14:59 22:59 06:59 Other: Voiding Method Toilet # Voids 1 2 Weight 46.04 kg 46.04 kg General appearance: The patient is alert, oriented, appears in no acute distress. HET: Head is normocephalic and atraumatic. Conjunctiva pink. Sclera anicteric. Neck: Supple without lymphadenopathy. Trachea midline. Heart: Regular. Lungs: Equal expansion, normal respiratory effort. Abdomen: Soft, nontender, nondistended. Skin: No rashes. No jaundice. Extremities: Normal skin color and turgor. No pedal edema. Neurological: No focal deficits. Alert and oriented x3. Results CBC & Chem 7: 10/11/24 06:26 10/11/24 06:26 Labs: Abnormal Lab Results - Last 24 Hours (Table) 10/10/24 10/10/24 10/10/24 Range/Units 15:44 15:44 20:14 WBC 3.7 L (3.8-10.6) k/uL Lymphocytes # 0.6 L (1.0-4.8) k/uL Magnesium 2.4 H (1.6-2.3) mg/dL GGT 94 H (0-38) U/L AST 280 H (14-36) U/L ALT 255 H (4-34) U/L Alkaline Phosphatase 221 H (38-126) U/L Total Protein 6.2 L (6.3-8.2) g/dL Assessment and Plan (1) Transaminitis Narrative/Plan: Patient transferred from outside hospital with concerns of chest pressure with recent history of myocardial infarction who underwent recent cardiac catheterization with PCI of the LAD about 4 weeks ago. Patient was started on multiple new medications including rosuvastatin with a reported allergy/adverse reaction to a atorvastatin, Jardiance, metoprolol, Entresto, and Zetia. Transaminitis likely medication induced. Recommend discontinuing statin at this time and continue to trend LFTs. May need to consider other possible medications as well. Unlikely patient with biliary colic as there is no elevation in her total bilirubin or alkaline phosphatase as well as patient has no abdominal pain. Current Visit: Yes Status: Acute Code(s): R74.01 - ELEVATION OF LEVELS OF LIVER TRANSAMINASE LEVELS SNOMED Code(s): 936683644 (2) Coronary artery disease Current Visit: Yes Status: Acute Code(s): I25.10 - ATHSCL HEART DISEASE OF [place] CORONARY ARTERY W/O ANG PCTRS SNOMED Code(s): 29952620 (3) Chest pain Current Visit: Yes Status: Acute Code(s): R07.9 - CHEST PAIN, UNSPECIFIED SNOMED Code(s): 37094086 Plan: 1. Continue symptomatic and supportive care 2. Transaminitis likely medication induced. Recommend discontinuing rosuvasta tin 3. Continue to monitor LFTs 4. No further workup from gastroenterology 5. Continue with recommendations from cardiology 6. Avoid hepatotoxic medications. May need to consider other new medications as possible cause of the transaminitis if LFTs do not continue to improve with discontinuation of rosuvastatin. 7. Patient to follow-up with her PCP, trend LFTs Thank you for allowing us to participate in the care of the patient, the GI service will sign off, gastroenterology will not be available at the hospital this weekend and through next week. If further evaluation by gastroenterology is required the patient will need transfer as per the primary team's discretion. Dr. Lary Romero I agree with the dictator's note, documented as a scribe by Maame Crain.
--- NOTE | 2024-10-11 12:12 | P.CRDCN ---
History of Present Illness Consult date: 10/11/24 Consult reason: chest pain History of present illness: This is an 87-year-old female patient of Dr. Chaney with past medical history of hypertension, anterior [facility] 08/2024 status post tPA status post cardiac cath with PCI noted below, ischemic cardiomyopathy with EF of 25 to 30%, LBBB, hypertension, dyslipidemia with intolerance to statins and unable to afford Repatha. We have been asked to evaluate the patient for chest pain. Patient states that she was at cardiac rehab up in [place] and she was told that she did not look good by the physician at the facility and was sent to the emergency center at [place] and subsequently to [facility]. Patient had pressure-like chest pain which has resolved. Patient was found have elevation of her liver function tests. She states she has had trouble taking statins in the past and recently was switched to rosuvastatin. She states the Repatha was $700 a month for her. Blood pressure 115/55, heart rate 74, pulse ox 99% on room air. -EKG: Sinus rhythm with left bundle branch block, no acute changes. -Chest x-ray: Chronic changes with no acute process. -Laboratory studies: WBC 4.6, hemoglobin 12, electrolytes and renal function are normal. Troponin negative x 3. Elevated liver function test with GGT 94, AST 196, ALT 211, alkaline phosphatase 267. Cepheid viral panel not detected. -Home cardiac medications: Aspirin 81 mg daily, Jardiance 10 mg daily, Zetia 10 mg daily, magnesium oxide 400 mg daily, Toprol XL 12.5 mg daily, Nitrostat as needed, rosuvastatin 20 mg at bedtime, Entresto 49-51 mg 1 twice daily, Brilinta 90 mg twice daily. -Cardiac catheterization performed by Dr. Chaney 09/02/2024 in the setting of NSTEMI revealed 99% mid LAD stenosis, 80% mid RCA stenosis, patent left circumflex, normal LVEDP. -09/02/2024: Successful stenting of the mid LAD with GALINA, adjunctive use of IVUS and aspiration thrombectomy in the right common femoral artery angiogram. -09/04/2024: IFR of the RCA, patent stent in the LAD, intermediate to severe lesion involving the mid RCA with borderline IFR with recommendations for medical treatment. -Echocardiogram performed 09/02/2024 at [facility] revealed severe LV dysfunction with EF of 25 to 30% with large area of apical akinesis without intramural thrombus. Review Of Systems: At the time of my exam: CONSTITUTIONAL: Denies fever or chills. HEENT: Denies blurred vision, vision changes, or eye pain. Denies hemoptysis CARDIOVASCULAR: Denies chest pain. Denies orthopnea. Denies PND. Denies palpitations RESPIRATORY: Denies shortness of breath. GASTROINTESTINAL: Denies abdominal pain. Denies nausea or vomiting. HEMATOLOGIC: Denies bleeding disorders. GENITOURINARY: Denies any blood in urine. SKIN: Denies puritis. Denies rash. Physical examination: Gen: This is 79-year-old female in no acute distress VS: reviewed HEENT: Head is atraumatic, normocephalic. Pupils equal, round. Sclerae is anicteric. NECK: Supple. No JVD. LUNGS: Clear to auscultation. No wheezes or rhonchi. No intercostal retractions. HEART: Regular rate and rhythm. No murmur. ABDOMEN: Soft No tenderness. EXTREMITIES: No pedal edema. No calf tenderness. NEUROLOGICAL: Patient is awake, alert and oriented x3. Assessment: Transaminitis Atypical chest pain, acute coronary syndrome ruled out Stable CAD with recent anterior STEMI 08/2024 Ischemic cardiomyopathy with EF of 25 to 30% LBBB Hypertension Dyslipidemia Intolerance to statins Plan: Resume patient's home cardiac medications Discontinue statin Obtain 2-D echocardiogram and Doppler study to assess cardiac structure and function Further recommendations to follow based upon clinical course At the time of discharge, patient will follow-up with Dr. Chaney in 1 week. Thank you kindly for this consultation. Nurse practitioner note has been reviewed, I agree with documented findings and plan of care. Patient was seen and examined. Past Medical History Past Medical History: Hypertension Additional Past Medical History / Comment(s): 1 stent in 08/2024 History of Any Multi-Drug Resistant Organisms: None Reported Past Surgical History: Orthopedic Surgery Past Anesthesia/Blood Transfusion Reactions: No Reported Reaction Date of Last Stent Placement:: 09/02/2024 Past Psychological History: No Psychological Hx Reported Smoking Status: Never smoker Past Alcohol Use History: None Reported Past Drug Use History: None Reported Medications and Allergies Home Medications Medication Instructions Recorded Confirmed Type Aspirin 81 mg PO DAILY tab 09/04/24 10/10/24 Rx Ezetimibe [Zetia] 10 mg PO DAILY #90 tab 09/04/24 10/10/24 Rx Metoprolol Succinate (ER) [Toprol 12.5 mg PO DAILY #45 tab 09/04/24 10/10/24 Rx XL] Nitroglycerin Sl Tabs [Nitrostat] 0.4 mg SUBLINGUAL Q5M PRN #25 tab 09/04/24 10/10/24 Rx Ticagrelor [Brilinta] 90 mg PO BID #180 tab 09/04/24 10/10/24 Rx Ascorbic Acid [Vitamin C] 500 mg PO DAILY 10/10/24 10/10/24 History Brain Health Supplement 1 tab PO HS 10/10/24 10/10/24 History Calcium Carbonate [Calcium] 600 mg PO DAILY 10/10/24 10/10/24 History Cholecalciferol [Vitamin D3 (10 10 mcg PO DAILY 10/10/24 10/10/24 History Mcg = 400 Iu)] Empagliflozin [Jardiance] 10 mg PO DAILY 10/10/24 10/10/24 History Magnesium Oxide [Mag-Ox] 400 mg PO DAILY 10/10/24 10/10/24 History Multivit-Min/Iron/Folic/Lutein 1 tab PO DAILY 10/10/24 10/10/24 History [Centrum Silver Women Tablet] Psyllium Husk [Metamucil] 0.4 gm PO DAILY 10/10/24 10/10/24 History Rosuvastatin [Crestor] 20 mg PO HS 10/10/24 10/10/24 History Sacubitril/Valsartan [Entresto 49 1 tab PO BID 10/10/24 10/10/24 History mg-51 mg Tablet] Allergies Allergy/AdvReac Type Severity Reaction Status Date / Time atorvastatin [From Lipitor] Allergy Severe Cough Verified 10/10/24 16:28 Physical Exam Vitals: Vital Signs Temp Pulse Pulse Resp BP BP Pulse Ox 10/11/24 02:00 97.9 F 64 16 111/68 98 10/11/24 01:28 18 10/10/24 20:45 97.5 F L 59 L 18 127/72 97 10/10/24 17:50 75 18 137/70 98 10/10/24 15:47 66 18 123/76 97 10/10/24 14:23 98.0 F 71 18 125/71 96 Intake and Output 10/10/24 10/11/24 10/11/24 22:59 06:59 14:59 Other: Voiding Method Toilet # Voids 1 2 Weight 46.04 kg Results 10/11/24 06:26 10/11/24 06:26 Cardiac Enzymes 10/10/24 10/10/24 10/10/24 Range/Units 15:44 15:44 20:14 AST 280 H (14-36) U/L Troponin I <0.012 <0.012 (0.000-0.034) ng/mL 10/10/24 10/11/24 Range/Units 23:34 06:26 AST 196 H (14-36) U/L Troponin I 0.012 (0.000-0.034) ng/mL Coagulation 10/10/24 Range/Units 15:44 PT 10.4 (10.0-12.5) sec APTT 23.8 (22.0-30.0) sec CBC 10/10/24 10/11/24 Range/Units 15:44 06:26 WBC 3.7 L 4.6 (3.8-10.6) k/uL RBC 3.87 3.81 (3.80-5.40) m/uL Hgb 12.3 12.0 (11.4-16.0) gm/dL Hct 36.6 36.7 (34.0-46.0) % Plt Count 204 202 (150-450) k/uL Comprehensive Metabolic Panel 10/10/24 10/11/24 Range/Units 15:44 06:26 Sodium 139 140 (137-145) mmol/L Potassium 4.2 3.9 (3.5-5.1) mmol/L Chloride 104 106 (98-107) mmol/L Carbon Dioxide 27 26 (22-30) mmol/L BUN 14 14 (7-17) mg/dL Creatinine 0.71 0.76 (0.52-1.04) mg/dL Glucose 87 81 (74-99) mg/dL Calcium 9.2 8.8 (8.4-10.2) mg/dL AST 280 H 196 H (14-36) U/L ALT 255 H 211 H (4-34) U/L Alkaline Phosphatase 221 H 267 H (38-126) U/L Total Protein 6.2 L 5.8 L (6.3-8.2) g/dL Albumin 3.9 3.7 (3.5-5.0) g/dL Current Medications Generic Name Dose Route Start Last Admin Trade Name Freq PRN Reason Stop Dose Admin Ascorbic Acid 500 mg 10/11/24 09:00 Ascorbic Acid 500 Mg Tab PO DAILY [facility] Aspirin 81 mg 10/11/24 09:00 Aspirin 81 Mg PO DAILY [facility] Calcium Carbonate/Glycine 500 mg 10/11/24 09:00 Calcium Carbonate 500 Mg Chewable PO DAILY [facility] Cholecalciferol 10 mcg 10/11/24 09:00 Cholecalciferol 10 Mcg (400 Iu) Tablet PO DAILY [facility] Dapagliflozin 5 mg 10/11/24 09:00 Dapagliflozin Propanediol 5 Mg Tablet PO DAILY [facility] Ezetimibe 10 mg 10/11/24 09:00 Ezetimibe 10 Mg Tab PO DAILY [facility] Enoxaparin Sodium 40 mg 10/11/24 09:00 Enoxaparin 40 Mg/0.4 Ml Syringe SQ DAILY [facility] Magnesium Oxide 400 mg 10/11/24 09:00 Magnesium Oxide 400 Mg Tab PO DAILY [facility] Metoprolol Succinate 12.5 mg 10/11/24 09:00 Metoprolol Succinate (Er) 25 Mg Tab.Er.24h PO DAILY [facility] Multivitamins 1 each 10/11/24 09:00 Multivitamins, Thera 1 Each Tab PO DAILY [facility] Naloxone HCl 0.2 mg 10/10/24 18:06 Naloxone 0.4 Mg/Ml 1 Ml Vial IV Q2M PRN Opioid Reversal Nitroglycerin 0.4 mg 10/10/24 18:08 Nitroglycerin Sl Tabs 0.4 Mg Tab SUBLINGUAL Q5M PRN Chest Pain (Rosuvastatin 20 Mg 1 each 10/10/24 21:00 10/10/24 22:06 Tablet) PO Not Given HS [facility] Psyllium Hydrophilic Mucilloid 6 gm 10/11/24 09:00 Psyllium Husk 100% 6 Gm Packet PO DAILY [facility] Sacubitril/Valsartan 1 each 10/10/24 21:00 10/10/24 22:05 Sacubitril/Valsartan 49 Mg-51 Mg Tablet PO 1 each BID [facility] Administration Ticagrelor 90 mg 10/10/24 21:00 10/10/24 22:05 Ticagrelor 90 Mg Tab PO 90 mg BID AKIRA Administration Intake and Output 10/10/24 10/11/24 10/11/24 22:59 06:59 14:59 Other: Voiding Method Toilet # Voids 1 2 Weight 46.04 kg 10/11/24 06:26 10/11/24 06:26
--- NOTE | 2024-10-11 12:32 | US ---
EXAMINATION TYPE: US abdomen complete DATE OF EXAM: 10/11/2024 COMPARISON: NONE CLINICAL INDICATION: Female, 79 years old with history of abd pain; LFTs TECHNIQUE: Grayscale and color Doppler imaging of the abdomen was performed. FINDINGS: EXAM MEASUREMENTS: Liver Length: 11.9 cm Gallbladder Wall: Surgically absent CBD: 0.4 cm, color Doppler imaging was utilized to isolate the common bile duct for measurement. Spleen: 7.5 cm Right Kidney: 10.0x3.5x5.2cm Left Kidney: 8.9x4.1x4.1 cm NOISE ABATEMENT ENGINEER NOTES: Pancreas: Tail obscured by overlying bowel gas Liver: wnl, no dilated ducts, masses or cysts., coarse echotexture Gallbladder: Surgically absent Evidence for sonographic Awan's sign: No CBD: wnl Spleen: wnl Right Kidney: wnl, No hydronephrosis, calculi or masses seen Left Kidney: wnl, No hydronephrosis, calculi or masses seen Upper IVC: wnl Abd Aorta: wnl Trace fluid around heart, B-lines noted at right hemithorax exam limited by bowel gas, rib shadows The intrahepatic portion of the IVC and proximal abdominal aorta are within normal limits. Common bi le duct is unremarkable. The visualized portions of the pancreas are homogenous. The spleen is unre markable. Kidneys are symmetric and free of hydronephrosis. No renal lesions are seen. IMPRESSION: Coarse hepatic echotexture which may reflect hepatic steatosis. [facility], , 10/11/2024 12:29 PM
[2024-10-11 13:51] VITALS: BP 114/72; PULSE 63; TEMP 98.1
--- NOTE | 2024-10-11 15:31 | CA ---
Transthoracic Echo Report Name: Sarbjit Weiss Age: 79 Gender: F : 1945 Exam Date: 10/11/2024 10:01 Exam Location: [facility] Ht (in): 60 Wt (lb): 101 Ordering Physician: Debbie West Attending/Referring Phys: [id number], Jenna Drip Box Tender Sandra Mcallister RDCS Procedure CPT: Indications: LVF Cardiac Hx: Technical Quality: Good Contrast 1: Total Dose (mL): Contrast 2: Total Dose (mL): MEASUREMENTS (Male / Female) Normal Values 2D ECHO LV Diastolic Diameter PLAX 4.0 cm 4.2 - 5.9 / 3.9 - 5.3 cm LV Systolic Diameter PLAX 2.8 cm IVS Diastolic Thickness 0.6 cm 0.6 - 1.0 / 0.6 - 0.9 cm LVPW Diastolic Thickness 0.9 cm 0.6 - 1.0 / 0.6 - 0.9 cm LV Relative Wall Thickness 0.4 LVOT Diameter 2.0 cm Aortic Root Diameter 2.9 cm LV Diastolic Volume MOD BP 59.0 cm??? 67 - 155 / 56 - 104 cm??? LV Systolic Volume MOD BP 27.4 cm??? 22 - 58 / 19 - 49 cm??? LV Ejection Fraction MOD BP 53.6 % >= 55 % LV Cardiac Index MOD BP 1659.0 cm???/min???m??? LV Diastolic Volume MOD 4C 66.8 cm??? LV Systolic Volume MOD 4C 31.0 cm??? LV Ejection Fraction MOD 4C 53.6 % LV Cardiac Index MOD 4C 1877.5 cm???/min???m??? LV Diastolic Length 4C 7.8 cm LV Systolic Length 4C 6.5 cm LV Diastolic Volume MOD 2C 52.1 cm??? LV Systolic Volume MOD 2C 24.0 cm??? LV Ejection Fraction MOD 2C 54.0 % LV Cardiac Index MOD 2C 1475.8 cm???/min???m??? LV Diastolic Length 2C 7.8 cm LV Systolic Length 2C 6.7 cm Ascending Aorta Diameter 3.2 cm DOPPLER AV Peak Velocity 128.8 cm/s AV Peak Gradient 6.6 mmHg AV Mean Velocity 89.7 cm/s AV Mean Gradient 3.6 mmHg AV Velocity Time Integral 20.7 cm LVOT Peak Velocity 94.9 cm/s LVOT Peak Gradient 3.6 mmHg LVOT Velocity Time Integral 15.3 cm LVOT Stroke Volume 47.1 cm??? LVOT Stroke Volume Index 33.7 ml/m??? LVOT Cardiac Index 2469.5 cm???/min???m??? AV Area Cont Eq vti 2.3 cm??? AV Area Cont Eq pk 2.3 cm??? Mitral E Point Velocity 44.3 cm/s Mitral A Point Velocity 67.5 cm/s Mitral E to A Ratio 0.7 MV Deceleration Time 136.3 ms MV E' Velocity 3.6 cm/s Mitral E to MV E' Ratio 12.4 TR Peak Velocity 239.7 cm/s TR Peak Gradient 23.0 mmHg Right Atrial Pressure 5.0 mmHg Pulmonary Artery Systolic Pressu 28.0 mmHg Right Ventricular Systolic Press 28.0 mmHg PV Peak Velocity 106.0 cm/s PV Peak Gradient 4.5 mmHg FINDINGS Left Ventricle Left ventricular ejection fraction is estimated at 50 %. Mildly decreased left ventricular ejection fraction. Left ventricular cavity size normal. Mildly reduced global left ventricular systolic function. Right Ventricle Normal right ventricular size and function. Right ventricular systolic pressure within normal limits. Right Atrium Normal right atrial size. Left Atrium Normal left atrial size. Mitral Valve Structurally normal mitral valve. No mitral stenosis. Mild mitral regurgitation. Aortic Valve Trileaflet aortic valve. No aortic valve stenosis or regurgitation. Tricuspid Valve Structurally normal tricuspid valve. No tricuspid stenosis. Mild tricuspid regurgitation. Pulmonic Valve Structurally normal pulmonic valve. No pulmonic stenosis. No pulmonic regurgitation. Pericardium No pericardial effusion. Aorta Normal size aortic root and proximal ascending aorta. CONCLUSIONS Normal left ventricle size with fairly well-preserved systolic function there is some asymmetric contractility noted. Mild mitral and tricuspid regurgitation. No significant pulmonary hypertension. No pericardial effusion Previewed by: Dr. Jovani Sierra MD (Electronically Signed) Final Date: 11 October 2024 15:31
--- NOTE | 2024-10-11 16:31 | P.DS ---
Providers Date of admission: 10/10/24 16:42 Expected date of discharge: 10/11/24 Attending physician: Ester Elias MD Consults: 10/10/24 18:06 Consult Physician Routine Consulting Provider: Jack Jean Baptiste Consult Reason/Comments: chest pressure Do you want consulting provider notified?: Yes, Notify in am Consult Physician Routine Consulting Provider: Binta Romero Consult Reason/Comments: transaminitis Do you want consulting provider notified?: Yes, Notify in am Primary care physician: Stated None Hospital Course: Discharge Diagnosis: Chest pain, acute coronary event ruled out Transaminitis, rosuvastatin discontinued. Transaminitis believed to be medication induced. History of ischemic cardiomyopathy with previous EF of 25 to 30%, repeat echocardiogram showing preserved EF of 50%. Known left bundle branch block Hypertension Hyperlipidemia Hospital Course: Patient is a very pleasant 79-year-old female with a past medical history of CAD status post stenting, ischemic cardiomyopathy with previous EF of 25 to 30%, left bundle branch block, hypertension, hyperlipidemia, and intolerance to statins and recently prescribed Repatha but reports she is unable to afford $700 per month. She presented to the emergency department on 10/10/2024 with a chief complaint of chest pain. She was a transfer from [facility] where she was scheduled for cardiac rehab, but was sent to our facility secondary to ill appearance and complaints of chest pain. Upon arrival to our facility, patient underwent evaluation in the emergency department. Vital signs upon arrival show blood pressure 125/71, heart rate 71, respiratory rate 18, temp 98.0 F, and SpO2 of 96% on room air. EKG completed showing sinus mechanism with left bundle branch block. Chest x-ray completed showing chronic changes but negative for acute cardiopulmonary process. Labs completed and reviewed. CBC showing leukopenia with WBC count of 3.7. Coagulation profile normal findings. BMP unremarkable. Magnesium 2.4. Liver profile showing transaminitis with AST of 280, ALT of 255, and alkaline phosphatase of 221. Troponin was negative at less than 0.012. proBNP was 602. Lipase normal findings at 252. TSH 2.080. Patient mated under services with consultation to gastroenterology and cardiology. Troponins trended overnight all negative at less than 0.012 x 3 draws. Influenza A, influenza B, RSV, and COVID PCR's were negative. Hepatitis panel nonreactive. TANIA screen was positive. Patient was evaluated by gastroenterology recommending discontinuation of rosuvastatin as LFTs are trending down. Transaminitis was believed to likely be medication induced from rosuvastatin. Patient cleared from gastroenterology perspective for discharge recommending outpatient follow-up for continued monitoring of LFTs. Patient was evaluated by cardiology in agreement with discontinuation of rosuvastatin. Echocardiogram was completed showing a preserved EF of 50% with mild mitral and tricuspid regurgitation and no pulmonary hypertension or pleural effusion. Discussed in depth with cardiac INSPECTOR TESTER SORTER, patient cleared from cardiac perspective for discharge. Patient is medically optimized at this time and cleared for discharge. Patient to follow-up outpatient with PCP in 1 to 2 days, setter helper in 1 week, and waterworks employee in 2 weeks Patient seen and examined at bedside Vital signs reviewed and stable. General: Nontoxic, no distress and appears stated age. Derm: Skin warm and dry, normal coloration for ethnicity. Head: Atraumatic, normocephalic and symmetric. Eyes: EOM's intact, no lid lag, and anicteric sclera Mouth: no lip lesions, mucus membranes moist Cardiovascular: regular rate and rhythm with normal S1S2, no murmur, positive posterior tibial pulses bilaterally, and cap refill < 2 seconds. Lungs: Respirations even, regular, and unlabored on room air. Lungs CTA bilaterally, no rhonchi, no rales, no wheezing, and no accessory muscle usage. Abdominal: soft, nontender to palpation, no guarding, no appreciable organomegaly Ext: ROM intact. No gross muscle atrophy, no edema, no contractures Neuro: Speech clear, face symmetrical and CN II-XII grossly intact with no noted focal neuro deficits Psych: Alert and oriented to person, place, time, and situation. Appropriate and pleasant affect. A total of 33 minutes of time were spent preparing this complex discharge summary. Pt was discharged on 10/11/2024 at 4:30 PM. Patient was seen independently by Nurse Practitioner. This document was prepared using Symplified dictation software. Please allow for errors in bank teller while rare they do occur. Cesar Blackwood INSPECTOR TESTER SORTER rendered care for this patient independently, reviewed the findings and plan as documented in the note above. I did not physically speak with or examine the patient on this date. Patient Condition at Discharge: Stable Plan - Discharge Summary Discharge Rx Participant: No New Discharge Prescriptions: Continue Nitroglycerin Sl Tabs [Nitrostat] 0.4 mg SUBLINGUAL Q5M PRN #25 tab PRN Reason: Chest Pain Sacubitril/Valsartan [Entresto 49 mg-51 mg Tablet] 1 tab PO BID Psyllium Husk [Metamucil] 0.4 gm PO DAILY Multivit-Min/Iron/Folic/Lutein [Centrum Silver Women Tablet] 1 tab PO DAILY Brain Health Supplement 1 tab PO HS Aspirin 81 mg PO DAILY tab Ticagrelor [Brilinta] 90 mg PO BID #180 tab Metoprolol Succinate (ER) [Toprol XL] 12.5 mg PO DAILY #45 tab Ezetimibe [Zetia] 10 mg PO DAILY #90 tab Empagliflozin [Jardiance] 10 mg PO DAILY Magnesium Oxide [Mag-Ox] 400 mg PO DAILY Calcium Carbonate [Calcium] 600 mg PO DAILY Ascorbic Acid [Vitamin C] 500 mg PO DAILY Cholecalciferol [Vitamin D3 (10 Mcg = 400 Iu)] 10 mcg PO DAILY Discontinued Rosuvastatin [Crestor] 20 mg PO HS Discharge Medication List Aspirin 81 mg PO DAILY tab 09/04/24 [Rx] Ezetimibe [Zetia] 10 mg PO DAILY #90 tab 09/04/24 [Rx] Metoprolol Succinate (ER) [Toprol XL] 12.5 mg PO DAILY #45 tab 09/04/24 [Rx] Nitroglycerin Sl Tabs [Nitrostat] 0.4 mg SUBLINGUAL Q5M PRN #25 tab 09/04/24 [Rx] Ticagrelor [Brilinta] 90 mg PO BID #180 tab 09/04/24 [Rx] Ascorbic Acid [Vitamin C] 500 mg PO DAILY 10/10/24 [History] Brain Health Supplement 1 tab PO HS 10/10/24 [History] Calcium Carbonate [Calcium] 600 mg PO DAILY 10/10/24 [History] Cholecalciferol [Vitamin D3 (10 Mcg = 400 Iu)] 10 mcg PO DAILY 10/10/24 [History] Empagliflozin [Jardiance] 10 mg PO DAILY 10/10/24 [History] Magnesium Oxide [Mag-Ox] 400 mg PO DAILY 10/10/24 [History] Multivit-Min/Iron/Folic/Lutein [Centrum Silver Women Tablet] 1 tab PO DAILY 10/10/24 [History] Psyllium Husk [Metamucil] 0.4 gm PO DAILY 10/10/24 [History] Sacubitril/Valsartan [Entresto 49 mg-51 mg Tablet] 1 tab PO BID 10/10/24 [History] Follow up Appointment(s)/Referral(s): Pool Chaney MD [Medical Doctor] - 1 Week [facility] [NON-STAFF] - 3 Days (Please call and leave message with lead oxide mill tender prior to discharging pt as pt will require post hosip talization follow up and establishement of care with PCP) Binta Romero MD [STAFF PHYSICIAN] - 2 Weeks Patient Instructions/Handouts: Chest Pain (DC) Activity/Diet/Wound Care/Special Instructions: Activity: As tolerated. Take breaks as needed. Diet: Heart healthy and carb consistent diet. Avoid salts, or foods with hidden salts such as canned or boxed foods and frozen dinners. Extra salt makes your heart work harder and traps the fluid in your body for longer. Special Instructions: Take all of your medications as directed and remember to keep all of your doctor's appointments and follow-up as needed. Thank you for allowing us to participate in your care, it was truly a pleasure having you for our patient!!! Discharge Disposition: HOME SELF-CARE
[2024-10-11 16:40] VITALS: RESP 16
[2024-10-14 09:49] LABS: Hepatitis B Virus DNA Not detected (Not detected); Hepatitis B Virus DNA, Quant <10 IU/mL (<10); Log HBV IU/mL <1.00 (<1.00)
== END 2024-10-11 17:29 | disposition home or self-care (01) ==
LOC: EC 14:20 → 6NMEDSUR 16:42
PROVIDERS: ADMIT Family Medicine; ATTEND Family Medicine
DX: R07.89 Other chest pain (principal); R74.01 Elevation of levels of liver transaminase levels; I25.10 Atherosclerotic heart disease of native coronary artery without angina pectoris; I11.0 Hypertensive heart disease with heart failure; I50.20 Unspecified systolic (congestive) heart failure; D72.819 Decreased white blood cell count, unspecified; E78.5 Hyperlipidemia, unspecified; I25.2 Old myocardial infarction; I25.5 Ischemic cardiomyopathy; I44.7 Left bundle-branch block, unspecified; Z79.02 Long term (current) use of antithrombotics/antiplatelets; Z79.82 Long term (current) use of aspirin; Z79.84 Long term (current) use of oral hypoglycemic drugs; Z79.899 Other long term (current) drug therapy; Z90.49 Acquired absence of other specified parts of digestive tract; Z95.5 Presence of coronary angioplasty implant and graft; Z88.8 Allergy status to other drugs, medicaments and biological substances
CPT/HCPCS: 96372; 99285; 36415; 93005; 93306; 83880; 87522; 80053 ×2; 80074; 87517; 84443; 82977; 83690; 83735 ×2; 84484; 85025 ×2; 85610; 85730; 86038; 86039; 87636; 71045; 76700; G0378 ×2; J1650